=== PATIENT | female | born 1960 | race Caucasian/White ===

== ENCOUNTER 2016-11-12 19:13 | Emergency (ER) | payer OTHER, BC ==
[~2016-11-12] VITALS: Ht 170.2 cm; Wt 116.1 kg
[~2016-11-12 19:13] MED LIST: CHOL40002 PO; HCT25T PO; LVT.05T PO; PANT40SU PO; VNL75CCR PO
[2016-11-12] MEDS: fentaNYL INJECTION 100 MCG/2 ML AMP ONE (19:24)
[2016-11-12] MEDS ORDERED: fentaNYL INJECTION 100 MCG/2 ML AMP IVP ONE ×3 (19:30→20:45)
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
[2016-11-12] MEDS ORDERED: LIDOCAINE 2% 20 ML (XYLOCAINE) VIAL INJ ONE (20:15)
[2016-11-12 20:39] LABS: BASOPHILS % (AUTO) 0 % (0-10); EOSINOPHILS % (AUTO) 0 % (0-10); LYMPHOCYTES % (AUTO) 14 % (12-44); MEAN CORPUSCULAR HEMOGLOBIN 30 PG (25-34); MEAN CORPUSCULAR HGB CONC 34 G/DL (32-36); MEAN CORPUSCULAR VOLUME 87 FL (80-99); MONOCYTES # (AUTO) 0.8 X 10^3 (0.0-1.0); MONOCYTES % (AUTO) 5 % (0-12); NEUTROPHILS # (AUTO) 11.5 X 10^3 (1.8-7.8); NEUTROPHILS % (AUTO) 81 % (42-75); PLATELET COUNT 347 10^3/uL (130-400); RED BLOOD COUNT 4.74 10^6/uL (4.35-5.85); RED CELL DISTRIBUTION WIDTH 13.9 % (10.0-14.5); WHITE BLOOD COUNT 14.2 10^3/uL (4.3-11.0)
[2016-11-12] MEDS ORDERED: HYDROmorphone (DILAUDID) 2 MG/ML VIAL IVP PRN (20:45)
[2016-11-12 20:52] LABS: ALANINE AMINOTRANSFERASE 47 U/L (0-55); ALBUMIN 3.9 GM/DL (3.2-4.5); ANION GAP 13 MMOL/L (5-14); ASPARTATE AMINO TRANSFERASE 41 U/L (5-34); BILIRUBIN,TOTAL 0.5 MG/DL (0.1-1.0); BLOOD UREA NITROGEN 17 MG/DL (7-18); BUN/CREATININE RATIO 22; CALCIUM 8.8 MG/DL (8.5-10.1); CARBON DIOXIDE 22 MMOL/L (21-32); CHLORIDE 103 MMOL/L (98-107); CREATININE SERUM 0.76 MG/DL (0.60-1.30); GFR ESTIMATED > 60; GLUCOSE 135 MG/DL (70-105); POTASSIUM 3.2 MMOL/L (3.6-5.0); SODIUM 138 MMOL/L (135-145)
[2016-11-12 21:00] LABS: BAND NEUTROPHILS 3 %; BASOPHILS % (MANUAL) 0 %; EOSINOPHILS % (MANUAL) 0 %; LYMPHOCYTES % (MANUAL) 15 %; NEUTROPHILS % (MANUAL) 82 %
[2016-11-12] MEDS ORDERED: HYDROmorphone (DILAUDID) 2 MG/ML VIAL IVP ONE (21:45)
[2016-11-12] MEDS ORDERED: NS IV 500 ML 500 ML IV SCH (22:00)
[2016-11-12] MEDS ORDERED: RX-ONDANSETRON 4 MG ODT (ZOFRAN) PPK #4 PO STA (22:10)
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
[2016-11-12] MEDS ORDERED: RX-OXYCODONE/APAP 5-325 MG #4 TAB PK PO PRN (22:15)
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
[2016-11-12] MEDS ORDERED: HYDR2TAB30 PO (22:16)
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
[2016-11-12 22:45] VITALS: BP 128/63
[2016-11-13] MEDS ORDERED: fentaNYL INJECTION 100 MCG/2 ML AMP IVP ONE (06:15)
== END 2016-11-12 22:45 | disposition home or self-care (01) ==
LOC: EDUNIT# 19:13 → ER 19:15
DX: S52.002A Unspecified fracture of upper end of left ulna, initial encounter for closed fracture (principal); S51.012A Laceration without foreign body of left elbow, initial encounter; V49.40XA Driver injured in collision with unspecified motor vehicles in traffic accident, initial encounter
CPT/HCPCS: 12001; 29105; 36415; 70450; 71010; 72125; 72170; 73060; 73090; 80053; 85007; 85027; 96374; 96375; 96376; 99291

== ENCOUNTER 2016-11-14 06:30 | Emergency (ER) | payer BC, OTHER ==
[~2016-11-14] VITALS: Ht 170.2 cm; Wt 116.1 kg
[~2016-11-14 06:30] MED LIST changes: +HYDR2TAB30 PO
[2016-11-14] MEDS ORDERED: ONDANSETRON 4 MG/2 ML (SDV) Z0FRAN IVP ONE (07:00)
[2016-11-14] MEDS ORDERED: HYDROmorphone (DILAUDID) 2 MG/ML VIAL IVP ONE (07:00)
[2016-11-14] MEDS ORDERED: NS IV 1000 ML 1,000 ML IV SCH (07:00)
[2016-11-14] MEDS ORDERED: MOBIC (07:01)
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
[2016-11-14] MEDS ORDERED: cefTRIAXone INJECTION 2,000 MG in NS (IVPB) 50 ML IV ONE (07:45)
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
[2016-11-14 10:00] VITALS: BP 137/75
== END 2016-11-14 10:00 | disposition short-term general hospital (02) ==
LOC: EDUNIT# 06:30 → ER 06:33
DX: S42.402D Unspecified fracture of lower end of left humerus, subsequent encounter for fracture with routine healing (principal); S52.612D Displaced fracture of left ulna styloid process, subsequent encounter for closed fracture with routine healing; I10 Essential (primary) hypertension; E03.9 Hypothyroidism, unspecified; F32.9 Major depressive disorder, single episode, unspecified; F41.9 Anxiety disorder, unspecified; F17.210 Nicotine dependence, cigarettes, uncomplicated; Z90.710 Acquired absence of both cervix and uterus; V49.60XD Unspecified car occupant injured in collision with unspecified motor vehicles in traffic accident, subsequent encounter
CPT/HCPCS: 29105; 73070; 73100; 96361; 96365; 96375

== ENCOUNTER → 2021-06-02 | Outpatient (REF) ==
[~2021-06-02] MED LIST changes: +MOBIC
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
== END ==
LOC: OCC 09:42
PROVIDERS: ATTEND Family Medicine
DX: M25.512 Pain in left shoulder (principal)
CPT/HCPCS: 73030

== ENCOUNTER → 2021-06-16 | Outpatient (REF) ==
--- NOTE | 2021-06-16 10:07 | Diagnostic Imaging Report ---
INDICATION: Left elbow fracture AP and lateral views of the left elbow are obtained. Since 11/14/2016, there has been placement of dorsal plates along the distal humerus with dorsal ulnar plate and screws. Fracture fragments seen on previous study appear to be well aligned and near anatomic in placement. There is no dislocation or evidence of immediate complication. IMPRESSION: Open reduction and internal fixation distal humeral and proximal ulnar fractures with near-anatomic alignment. Dictated by: Dictated on workstation # [id number]
== END | disposition home or self-care (01) ==
LOC: OCC 09:40
PROVIDERS: ATTEND Family Medicine
DX: Z01.818 Encounter for other preprocedural examination (principal)
CPT/HCPCS: 73090